=== PATIENT | male | born 1960 | race Caucasian/White ===

== ENCOUNTER 2020-01-07 08:55 | Inpatient (IN) ==
[2020-01-07] MEDS ORDERED: MULTI-VITAMIN INFUSION 10 ML, THIAMINE HCL 100 MG, FOLIC ACID 1 MG in SODIUM CHLORIDE 0... IV ONE (09:18)
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
[2020-01-07 09:33] LABS: Basophils # (auto) 0.02 K/uL (0-0.2); Basophils % (auto) 0.1 %; Eosinophils # (auto) 0.14 K/uL (0-0.5); Eosinophils % (auto) 0.8 %; Hematocrit (blood only) 40.9 % (42-52); Hemoglobin 14.3 g/dL (14.0-18.0); Immature Granulocytes # (auto) 0.07 K/uL (0.00-0.02); Immature Granulocytes % (auto) 0.4 %; Lymphocytes % (auto) 12.5 %; Mean Corpuscular Hemoglobin 32.9 pg (25-34); Mean Corpuscular Volume 94.2 fL (80-100); Mean Platelet Volume 10.4 fL (7.4-10.4); Monocytes # (auto) 1.94 K/uL (0.11-0.59); Monocytes % (auto) 10.5 %; Neutrophils # (auto) 13.99 K/uL (1.4-6.5); Neutrophils % (auto) 75.7 %; Platelet Count 227 K/uL (130-400); RDW Coefficient of Variation 13.2 % (11.5-14.5); RDW Standard Deviation 45.6 fL (36.4-46.3); Red Blood Count 4.34 M/uL (4.7-6.1); White Blood Count 18.46 K/uL (4.8-10.8)
[2020-01-07 09:44] LABS: Partial Thromboplastin Ratio 1.1; Partial Thromboplastin Time 28.8 Seconds (21.0-31.0); Prothrombin Time 9.9 Seconds (9.0-12.0)
--- NOTE | 2020-01-07 09:46 | XRay Report ---
XR ankle RT min 3V routine, XR ankle LT min 3V routine HISTORY: 59 years-old Male pain/swelling acute bilateral ankle pain with soft tissue swelling COMPARISON: None TECHNIQUE: 3 views of the bilateral ankles FINDINGS: RIGHT: Mild circumferential soft tissue swelling. No acute fracture, dislocation or osteochondral defect. 2 mm corticated ossification projects inferior to the medial malleolus suggestive of remote avulsion fr acture fragment versus accessory ossicle. There is mild tibiotalar osteoarthritis. Small joint effusi on. LEFT: Moderate circumferential soft tissue swelling. No acute fracture, dislocation or osteochondral defect . Mild tibiotalar osteoarthritis. No large joint effusion. IMPRESSION: Bilateral ankle soft tissue swelling without acute fracture or dislocation. ACT 112: Negative or not required by law. The above report was generated using voice recognition software. It may contain grammatical, syntax o r spelling errors. Electronically signed by: Jerome Caceres M.D. 01/07/2020 9:45 AM
--- NOTE | 2020-01-07 09:48 | XRay Report ---
XR chest 1V portable HISTORY: 59 years-old Male alcohol intoxication acute atypical chest pain COMPARISON: None TECHNIQUE: Portable AP view of the chest FINDINGS: Healed remote fracture deformities of the posterior and posterolateral aspects of the left ninth rib. Mild degenerative changes of the spine. Cardiomediastinal and hilar silhouettes are within normal li mits. No pneumothorax, pleural effusion, airspace consolidation or overt pulmonary edema. IMPRESSION: No acute process. ACT 112: Negative or not required by law. The above report was generated using voice recognition software. It may contain grammatical, syntax o r spelling errors. Electronically signed by: Jerome Caceres M.D. 01/07/2020 9:46 AM
[2020-01-07 09:55] LABS: Albumin Level 3.6 gm/dl (3.4-5.0); Calcium 8.8 mg/dl (8.5-10.1); Creatinine Clr Calc Pharmacy 82.7 ml/min; Est GFR (Non-African American) 73.3; Potassium 3.7 mmol/L (3.5-5.1); Uric Acid 6.5 mg/dl (2.6-7.2)
[2020-01-07 09:58] LABS: Acetaminophen < 2 ug/ml (10-30); Salicylate 1.8 mg/dl (2.8-20)
[2020-01-07 10:06] LABS: Albumin Globulin Ratio 0.9 (0.9-2); Bilirubin,Total 0.3 mg/dl (0.2-1); Globulin 3.9 gm/dl (2.5-4.0); Thyroid Stimulating Hormone 3.64 uIu/ml (0.300-4.500); Total Protein 7.5 gm/dl (6.4-8.2)
[2020-01-07] MEDS ORDERED: CEFEPIME 2,000 MG/20 ML VIAL IV STA (10:18)
[2020-01-07] MEDS ORDERED: SODIUM CHLORIDE 0.9% 1000ML 1,000 ML IV SCH ×2 (10:30→14:17)
[2020-01-07 11:07] LABS: Lyme Ab IgG w/WB Rflx Negative (Negative); Lyme Ab IgM w/WB Rflx Negative (Negative)
[2020-01-07] MEDS ORDERED: SODIUM CHLORIDE 0.9% 1000ML 1,000 ML IV ONE (11:17)
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
[2020-01-07 13:01] LABS: Magnesium 2.2 mg/dl (1.8-2.4); Phosphorus 3.8 mg/dl (2.5-4.9)
[2020-01-07 13:17] LABS: Appearance Urine Clear (Clear); Bilirubin Urine Negative (Negative); Blood Urine Negative (Negative); Color Urine Yellow; Glucose Urine UA Negative (Negative); Ketones Urine Negative (Negative); Leukocyte Esterase Urine Negative (Negative); Nitrite Urine Negative (Negative); Protein Urine Negative (Negative); Urobilinogen Urine Negative (Negative)
[2020-01-07 13:46] LABS: Amphetamines+Metham, Urine Pos (Neg); Barbiturates, Urine Neg (Neg); Benzodiazepine, Urine Pos (Neg); Cocaine, Urine Neg (Neg); MDMA (Ecstacy), Urine Neg (Neg); Methadone, Urine Neg (Neg); Opiate, Urine Neg (Neg); Phencyclidine, Urine Neg (Neg)
[2020-01-07 13:50] LABS: Influenza A virus by PCR Neg for Influ A (Neg); Influenza B virus by PCR Neg for Influ B (Neg)
--- NOTE | 2020-01-07 14:06 | CT Scan Report ---
CT head/brain wo con CLINICAL HISTORY: Acute change in mental status COMPARISON STUDY: No previous studies for comparison. TECHNIQUE: Axial CT of the brain is performed from the vertex to the skull base. IV contrast was not administered for this examination. A dose lowering technique was utilized adhering to the principles of ALARA. CT DOSE: 1459.56 mGycm FINDINGS: No intra or extra-axial mass lesions are visualized. There is no CT evidence of acute cortical infarc tion. There is no evidence of midline shift. There is no acute hemorrhage. No calvarial fractures ar e visualized. There are mild white matter hypodensities likely on a small vessel basis. There is a right basal gang joyce lacunar infarct. There is no evidence of pathologic ventricular dilatation. There is no evidence of acute sinusitis IMPRESSION: No acute intracranial findings ACT 112: Negative or not required by law. Electronically signed by: Ellis Castaneda M.D. 01/07/2020 2:05 PM
[2020-01-07] MEDS ORDERED: LORazepam 2 MG/4 ML VIAL IV PRN (14:17)
[2020-01-07] MEDS ORDERED: POLYETHYLENE (MIRALAX) 17 GM PACK PO PRN (14:17)
[2020-01-07] MEDS ORDERED: ONDANSETRON INJ 2 MG/ML 2 ML VIAL IV PRN (14:17)
[2020-01-07] MEDS ORDERED: LORazepam 3 MG/6 ML VIAL IV PRN (14:17)
[2020-01-07] MEDS ORDERED: ATIVAN IV ALCOHOL WITHDRAWL IV PRN (14:17)
[2020-01-07] MEDS ORDERED: GABAPENTIN 1200MG ALCOHOL WITHDRAWAL LOAD PO STA (14:17)
[2020-01-07] MEDS ORDERED: ACETAMINOPHEN 325 MG TAB PO PRN (14:17)
[2020-01-07] MEDS ORDERED: GABAPENTIN 600 MG TAB PO ONE (15:00)
[2020-01-07] MEDS ORDERED: THIAMINE HCL 100 MG in SYRINGE 9 ML IV SCH (15:00)
--- NOTE | 2020-01-07 15:01 | Electrocardiogram Report ---
Test Reason : Blood Pressure : / mmHG Vent. Rate : 087 BPM Atrial Rate : 087 BPM P-R Int : 158 ms QRS Dur : 100 ms QT Int : 398 ms P-R-T Axes : 071 078 072 degrees QTc Int : 478 ms Normal sinus rhythm Normal ECG No previous ECGs available Confirmed by Jairo Duval ([id number]) on 01/07/2020 3:01:21 PM Referred By: Confirmed By:Ion Duval
[2020-01-07] MEDS: NICOTINE 14 MG/24 HR PATCH TD SCH ×2 (15:25→16:42)
[2020-01-07] MEDS: FOLIC ACID 1 MG TAB PO SCH (15:26)
[2020-01-07 15:55] LABS: Hepatitis B Surface Antigen Neg (Neg)
[2020-01-07] MEDS ORDERED: LORazepam 2 MG/4 ML VIAL IV STA (16:31)
[2020-01-07] MEDS: GABAPENTIN 600 MG TAB PO SCH ×2 (19:42→23:25)
[2020-01-07] MEDS: CEFEPIME 2,000 MG in SYRINGE 7.5 ML IV SCH (20:05)
[2020-01-07] MEDS: LORazepam 1 MG/2 ML VIAL IV PRN (22:01)
[2020-01-07] MEDS ORDERED: XOPENEX/ATROVENT 1.25mg/0.5MG NEB COMBO NEB PRN (22:28)
[2020-01-07] MEDS ORDERED: LEVALBUTEROL 1.25MG/0.5ML NEB INH PRN (22:30)
[2020-01-07] MEDS ORDERED: IPRATROPIUM BROMIDE NEB SOLN 0.02% 2.5 ML VIAL INH PRN (22:30)
--- NOTE | 2020-01-07 22:45 | XRay Report ---
XR chest 1V portable CLINICAL HISTORY: sob dyspnea COMPARISON STUDY: 01/07/2020 9:32 AM FINDINGS: The bones soft tissues and hemidiaphragms are normal. The cardiomediastinal silhouette is n ormal. The lungs are clear. The pulmonary vasculature is normal. Several old left-sided rib fractures . No acute infiltrate. IMPRESSION: No acute process. No change from the prior exam. ACT 112: Negative or not required by law. The above report was generated using voice recognition software. It may contain grammatical, syntax or spelling errors. Electronically signed by: Rahat Narayan M.D. 01/07/2020 10:44 PM
[2020-01-07] MEDS ORDERED: LACTATED RINGER'S 1,000 ML IV ONE (23:16)
[2020-01-08] MEDS: CEFEPIME 2,000 MG in SYRINGE 7.5 ML IV SCH ×3 (05:38→20:18)
[2020-01-08] MEDS: MULTIVITAMIN TAB PO SCH (07:43)
[2020-01-08] MEDS: THIAMINE HCL 100 MG TAB PO SCH (07:43)
[2020-01-08] MEDS: LORazepam 1 MG/2 ML VIAL IV PRN ×2 (07:43→10:08)
[2020-01-08] MEDS: GABAPENTIN 600 MG TAB PO SCH ×2 (07:43→17:22)
[2020-01-08] MEDS: FOLIC ACID 1 MG TAB PO SCH (07:44)
--- NOTE | 2020-01-08 07:47 | Hospitalist Progress Note ---
Date of Service January 08, 2020 Assessment & Plan (1) Alcohol intoxication: (2) Drug abuse: Pt is 59 y/o M with PMH paroxysmal atrial fibrillation, HTN, drug abuse, alcohol abuse, tobacco abuse presented to ER for altered mental status, was found by police lying in middle of the road [place] [facility]. Limited history obtained from pt secondary to his current altered mental status. 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 , hx of etoh and drug abuse - will consult psych for further eval (3) Leukocytosis: In ER given 1L NSS, cefepime Afebrile. No cough reported WBC: 18, Lactate: 1.9, Procalcitonin: 0.2, CXR: no acute changes. Negative influenza. No noted abscess to arms -Blood cultures pending -UA pending -Cefepime for empiric -MRSA swab -IVF -CBC, CMP in am (4) Elevated LFTs: T: bili: 0.3, AST: 123, ALT: 78, Alk Phos: 78. No abdominal pain Alcohol abuse, h/o IV drug abuse Hepatitis panel pending CMP, liver panel in am (5) Paroxysmal atrial fibrillation: Current sinus rhythm Pt reports self stopped medications previously -Monitor on tele (6) HTN (hypertension): BP's on low side in ER and improved with fluids Not currently on medications -Monitor BP (7) Tobacco abuse: -Smoking cessation advised -Nicotine patch DVT Prophylaxis -SCDs Full Code as per discussion with pt Does not follow with PCP for routine care Admission and Anticipated Discharge Date Admission Date: January 07, 2020 Subjective Pt is lying in bed, in NAD. Currently denies any fever, chills, chest pain, shortness of breath, abd. pain, nausea, vomiting. Says he saw his mother in the room, also reports hx of visual loo ucinations when not withdrawing from alcohol. Says psychiatrist or therapist "did not have time to eval" him while in the rehab. Review of Systems 2 Review of Systems: All systems reviewed & are unremarkable except as noted in HPI & below Constitutional: no fever and no chills Respiratory: no cough and no dyspnea Cardiovascular: no chest pain and no palpitations Gastrointestinal: no abdominal pain, no nausea and no vomiting Psychiatric: + visual hallucinations Physical Exam Physical Exam: General: middle aged male, lying in bed, in no acute distress, WDWN Head: normocephalic, atraumatic Eyes: PERRL, EOM's intact, conjunctiva non-injected, anicteric ENT: normal inspection external ears, nose, mucous membranes mildly dry Neck: supple, trachea midline Lungs: no respiratory distress, + wheezing, no rhonchi or rales CV: RRR, no murmur, no pitting pretibial edema Abd: normal BS, soft, non-tender, nondistended Ext: no cyanosis, no calf tenderness; bilateral ankles and feet with edema with no significant tenderness to palpation at this time, plantar feet with callus, ROM bilateral arms and legs and feet intact Neuro: Alert and oriented, speech fluent, no facial asymmetry, moves extremities spontaneously, no focal deficits noted Psych: visual hallucinations Skin: warm, dry; bilateral arms with track haynes with areas of firmness over veins without erythema or fluctuance Results & Data ([facility]) Vital Signs (Past 12 Hours) Vital Signs Temp Pulse Pulse Resp BP BP Pulse Ox 01/08/20 07:34 37.5 C 107 H 20 136/79 91 01/08/20 03:41 37.0 C 114 H 23 122/70 94 01/08/20 00:00 117 H 01/07/20 23:49 37.0 C 113 H 21 118/69 91 01/07/20 21:54 36.4 C L 108 H 22 121/80 91 Laboratory Results 01/07/20 01/07/20 01/07/20 Range/Units 14:49 14:49 14:45 WBC (4.8-10.8) K/uL RBC (4.7-6.1) M/uL Hgb (14.0-18.0) g/dL Hct (42-52) % MCV (80-100) fL MCH (25-34) pg MCHC (32-36) g/dL RDW Std Deviation (36.4-46.3) fL RDW Coeff of Marian (11.5-14.5) % Plt Count (130-400) K/uL MPV (7.4-10.4) fL Immature Gran % (Auto) % Neut % (Auto) % Lymph % (Auto) % [place] % (Auto) % Eos % (Auto) % Baso % (Auto) % Immature Gran # (Auto) (0.00-0.02) K/uL Neut # (Auto) (1.4-6.5) K/uL Lymph # (Auto) (1.2-3.4) K/uL [place] # (Auto) (0.11-0.59) K/uL Eos # (Auto) (0-0.5) K/uL Baso # (Auto) (0-0.2) K/uL PT (9.0-12.0) Seconds INR (0.9-1.1) APTT (21.0-31.0) Seconds PTT Ratio Sodium (136-145) mmol/L Potassium (3.5-5.1) mmol/L Chloride (98-107) mmol/L Carbon Dioxide (21-32) mmol/L Anion Gap (3-11) BUN (7-18) mg/dl Creatinine (0.6-1.4) mg/dl Est Cr Clr Drug Dosing ml/min Est GFR ( Amer) Est GFR (Non-Af Amer) BUN/Creatinine Ratio (10-20) Glucose (70-99) mg/dl POC Glucose (70-99) mg/dl Lactate (0.4-2.0) mmol/L Uric Acid (2.6-7.2) mg/dl Calcium (8.5-10.1) mg/dl Phosphorus (2.5-4.9) mg/dl Magnesium (1.8-2.4) mg/dl Total Bilirubin (0.2-1) mg/dl AST (15-37) U/L ALT (12-78) U/L Alkaline Phosphatase (45-117) U/L Total Protein (6.4-8.2) gm/dl Albumin (3.4-5.0) gm/dl Globulin (2.5-4.0) gm/dl Albumin/Globulin Ratio (0.9-2) Procalcitonin (0-0.5) ng/ml TSH (0.300-4.500) uIu/ml Urine Color Urine Appearance (Clear) Urine pH (4.5-7.5) Ur Specific [place] (1.000-1.030) Urine Protein (Negative) Urine Glucose (UA) (Negative) Urine Ketones (Negative) Urine Blood (Negative) Urine Nitrite (Negative) Urine Bilirubin (Negative) Urine Urobilinogen (Negative) Ur Leukocyte Esterase (Negative) Nasal Screen MRSA (PCR) Negative (Negative) Salicylates (2.8-20) mg/dl Urine Opiates Screen (Neg) Ur Methadone, Qual (Neg) Acetaminophen (10-30) ug/ml Urine Barbiturates (Neg) Ur Phencyclidine (PCP) (Neg) U Amphetamines Confirm U Amphetamin/Meth Scrn (Neg) U Methamphetamin Confrm MDMA (Ecstasy) Screen (Neg) U OH-Alprazolam Confrm U Benzodiazepines Scrn (Neg) 7-Amino Clonazepam Ur Nordiazepam Confirm U OH-ethylflurazepam U Lorazepam Cnf GC/MS U Oxazepam Confm GC/MS Ur Temazepam Confirm U OH-Triazolam Confirm U OH-Midazolam Confirm Ur Cocaine Metabolite (Neg) U Marijuana (THC) Screen (Neg) Drug Screen Comment Ethyl Alcohol mg/dL (0-3) mg/dl Lyme Disease IgG Ab (Negative) Lyme Disease IgM Ab (Negative) Hep Bs Antigen Neg (Neg) Hepatitis C Antibody Prelim Pos A (Neg) HCV RNA Qual (TMA) Pending Influenza Type A (PCR) (Neg) Influenza Type B (PCR) (Neg) 01/07/20 01/07/20 01/07/20 Range/Units 13:02 12:56 12:56 WBC (4.8-10.8) K/uL RBC (4.7-6.1) M/uL Hgb (14.0-18.0) g/dL Hct (42-52) % MCV (80-100) fL MCH (25-34) pg MCHC (32-36) g/dL RDW Std Deviation (36.4-46.3) fL RDW Coeff of Marian (11.5-14.5) % Plt Count (130-400) K/uL MPV (7.4-10.4) fL Immature Gran % (Auto) % Neut % (Auto) % Lymph % (Auto) % [place] % (Auto) % Eos % (Auto) % Baso % (Auto) % Immature Gran # (Auto) (0.00-0.02) K/uL Neut # (Auto) (1.4-6.5) K/uL Lymph # (Auto) (1.2-3.4) K/uL [place] # (Auto) (0.11-0.59) K/uL Eos # (Auto) (0-0.5) K/uL Baso # (Auto) (0-0.2) K/uL PT (9.0-12.0) Seconds INR (0.9-1.1) APTT (21.0-31.0) Seconds PTT Ratio Sodium (136-145) mmol/L Potassium (3.5-5.1) mmol/L Chloride (98-107) mmol/L Carbon Dioxide (21-32) mmol/L Anion Gap (3-11) BUN (7-18) mg/dl Creatinine (0.6-1.4) mg/dl Est Cr Clr Drug Dosing ml/min Est GFR ( Amer) Est GFR (Non-Af Amer) BUN/Creatinine Ratio (10-20) Glucose (70-99) mg/dl POC Glucose (70-99) mg/dl Lactate (0.4-2.0) mmol/L Uric Acid (2.6-7.2) mg/dl Calcium (8.5-10.1) mg/dl Phosphorus (2.5-4.9) mg/dl Magnesium (1.8-2.4) mg/dl Total Bilirubin (0.2-1) mg/dl AST (15-37) U/L ALT (12-78) U/L Alkaline Phosphatase (45-117) U/L Total Protein (6.4-8.2) gm/dl Albumin (3.4-5.0) gm/dl Globulin (2.5-4.0) gm/dl Albumin/Globulin Ratio (0.9-2) Procalcitonin (0-0.5) ng/ml TSH (0.300-4.500) uIu/ml Urine Color Yellow Urine Appearance Clear (Clear) Urine pH 5.0 (4.5-7.5) Ur Specific [place] 1.010 (1.000-1.030) Urine Protein Negative (Negative) Urine Glucose (UA) Negative (Negative) Urine Ketones Negative (Negative) Urine Blood Negative (Negative) Urine Nitrite Negative (Negative) Urine Bilirubin Negative (Negative) Urine Urobilinogen Negative (Negative) Ur Leukocyte Esterase Negative (Negative) Nasal Screen MRSA (PCR) (Negative) Salicylates (2.8-20) mg/dl Urine Opiates Screen (Neg) Ur Methadone, Qual (Neg) Acetaminophen (10-30) ug/ml Urine Barbiturates (Neg) Ur Phencyclidine (PCP) (Neg) U Amphetamines Confirm Pending U Amphetamin/Meth Scrn (Neg) U Methamphetamin Confrm Pending MDMA (Ecstasy) Screen (Neg) U OH-Alprazolam Confrm Pending U Benzodiazepines Scrn (Neg) 7-Amino Clonazepam Pending Ur Nordiazepam Confirm Pending U OH-ethylflurazepam Pending U Lorazepam Cnf GC/MS Pending U Oxazepam Confm GC/MS Pending Ur Temazepam Confirm Pending U OH-Triazolam Confirm Pending U OH-Midazolam Confirm Pending Ur Cocaine Metabolite (Neg) U Marijuana (THC) Screen (Neg) Drug Screen Comment Pending Ethyl Alcohol mg/dL (0-3) mg/dl Lyme Disease IgG Ab (Negative) Lyme Disease IgM Ab (Negative) Hep Bs Antigen (Neg) Hepatitis C Antibody (Neg) HCV RNA Qual (TMA) Influenza Type A (PCR) Neg for Influ A (Neg) Influenza Type B (PCR) Neg for Influ B (Neg) 01/07/20 01/07/20 01/07/20 Range/Units 12:56 11:07 09:26 WBC (4.8-10.8) K/uL RBC (4.7-6.1) M/uL Hgb (14.0-18.0) g/dL Hct (42-52) % MCV (80-100) fL MCH (25-34) pg MCHC (32-36) g/dL RDW Std Deviation (36.4-46.3) fL RDW Coeff of Marian (11.5-14.5) % Plt Count (130-400) K/uL MPV (7.4-10.4) fL Immature Gran % (Auto) % Neut % (Auto) % Lymph % (Auto) % [place] % (Auto) % Eos % (Auto) % Baso % (Auto) % Immature Gran # (Auto) (0.00-0.02) K/uL Neut # (Auto) (1.4-6.5) K/uL Lymph # (Auto) (1.2-3.4) K/uL [place] # (Auto) (0.11-0.59) K/uL Eos # (Auto) (0-0.5) K/uL Baso # (Auto) (0-0.2) K/uL PT (9.0-12.0) Seconds INR (0.9-1.1) APTT (21.0-31.0) Seconds PTT Ratio Sodium (136-145) mmol/L Potassium (3.5-5.1) mmol/L Chloride (98-107) mmol/L Carbon Dioxide (21-32) mmol/L Anion Gap (3-11) BUN (7-18) mg/dl Creatinine (0.6-1.4) mg/dl Est Cr Clr Drug Dosing ml/min Est GFR ( Amer) Est GFR (Non-Af Amer) BUN/Creatinine Ratio (10-20) Glucose (70-99) mg/dl POC Glucose 104 H (70-99) mg/dl Lactate 1.9 (0.4-2.0) mmol/L Uric Acid (2.6-7.2) mg/dl Calcium (8.5-10.1) mg/dl Phosphorus (2.5-4.9) mg/dl Magnesium (1.8-2.4) mg/dl Total Bilirubin (0.2-1) mg/dl AST (15-37) U/L ALT (12-78) U/L Alkaline Phosphatase (45-117) U/L Total Protein (6.4-8.2) gm/dl Albumin (3.4-5.0) gm/dl Globulin (2.5-4.0) gm/dl Albumin/Globulin Ratio (0.9-2) Procalcitonin (0-0.5) ng/ml TSH (0.300-4.500) uIu/ml Urine Color Urine Appearance (Clear) Urine pH (4.5-7.5) Ur Specific [place] (1.000-1.030) Urine Protein (Negative) Urine Glucose (UA) (Negative) Urine Ketones (Negative) Urine Blood (Negative) Urine Nitrite (Negative) Urine Bilirubin (Negative) Urine Urobilinogen (Negative) Ur Leukocyte Esterase (Negative) Nasal Screen MRSA (PCR) (Negative) Salicylates (2.8-20) mg/dl Urine Opiates Screen Neg (Neg) Ur Methadone, Qual Neg (Neg) Acetaminophen (10-30) ug/ml Urine Barbiturates Neg (Neg) Ur Phencyclidine (PCP) Neg (Neg) U Amphetamines Confirm U Amphetamin/Meth Scrn Pos H (Neg) U Methamphetamin Confrm MDMA (Ecstasy) Screen Neg (Neg) U OH-Alprazolam Confrm U Benzodiazepines Scrn Pos H (Neg) 7-Amino Clonazepam Ur Nordiazepam Confirm U OH-ethylflurazepam U Lorazepam Cnf GC/MS U Oxazepam Confm GC/MS Ur Temazepam Confirm U OH-Triazolam Confirm U OH-Midazolam Confirm Ur Cocaine Metabolite Neg (Neg) U Marijuana (THC) Screen Neg (Neg) Drug Screen Comment Ethyl Alcohol mg/dL (0-3) mg/dl Lyme Disease IgG Ab (Negative) Lyme Disease IgM Ab (Negative) Hep Bs Antigen (Neg) Hepatitis C Antibody (Neg) HCV RNA Qual (TMA) Influenza Type A (PCR) (Neg) Influenza Type B (PCR) (Neg) 01/07/20 01/07/20 01/07/20 Range/Units 09:24 09:24 09:21 WBC (4.8-10.8) K/uL RBC (4.7-6.1) M/uL Hgb (14.0-18.0) g/dL Hct (42-52) % MCV (80-100) fL MCH (25-34) pg MCHC (32-36) g/dL RDW Std Deviation (36.4-46.3) fL RDW Coeff of Marian (11.5-14.5) % Plt Count (130-400) K/uL MPV (7.4-10.4) fL Immature Gran % (Auto) % Neut % (Auto) % Lymph % (Auto) % [place] % (Auto) % Eos % (Auto) % Baso % (Auto) % Immature Gran # (Auto) (0.00-0.02) K/uL Neut # (Auto) (1.4-6.5) K/uL Lymph # (Auto) (1.2-3.4) K/uL [place] # (Auto) (0.11-0.59) K/uL Eos # (Auto) (0-0.5) K/uL Baso # (Auto) (0-0.2) K/uL PT 9.9 (9.0-12.0) Seconds INR 1.0 (0.9-1.1) APTT 28.8 (21.0-31.0) Seconds PTT Ratio 1.1 Sodium (136-145) mmol/L Potassium (3.5-5.1) mmol/L Chloride (98-107) mmol/L Carbon Dioxide (21-32) mmol/L Anion Gap (3-11) BUN (7-18) mg/dl Creatinine (0.6-1.4) mg/dl Est Cr Clr Drug Dosing ml/min Est GFR ( Amer) Est GFR (Non-Af Amer) BUN/Creatinine Ratio (10-20) Glucose (70-99) mg/dl POC Glucose (70-99) mg/dl Lactate (0.4-2.0) mmol/L Uric Acid (2.6-7.2) mg/dl Calcium (8.5-10.1) mg/dl Phosphorus (2.5-4.9) mg/dl Magnesium (1.8-2.4) mg/dl Total Bilirubin (0.2-1) mg/dl AST (15-37) U/L ALT (12-78) U/L Alkaline Phosphatase (45-117) U/L Total Protein (6.4-8.2) gm/dl Albumin (3.4-5.0) gm/dl Globulin (2.5-4.0) gm/dl Albumin/Globulin Ratio (0.9-2) Procalcitonin 0.20 (0-0.5) ng/ml TSH (0.300-4.500) uIu/ml Urine Color Urine Appearance (Clear) Urine pH (4.5-7.5) Ur Specific [place] (1.000-1.030) Urine Protein (Negative) Urine Glucose (UA) (Negative) Urine Ketones (Negative) Urine Blood (Negative) Urine Nitrite (Negative) Urine Bilirubin (Negative) Urine Urobilinogen (Negative) Ur Leukocyte Esterase (Negative) Nasal Screen MRSA (PCR) (Negative) Salicylates (2.8-20) mg/dl Urine Opiates Screen (Neg) Ur Methadone, Qual (Neg) Acetaminophen (10-30) ug/ml Urine Barbiturates (Neg) Ur Phencyclidine (PCP) (Neg) U Amphetamines Confirm U Amphetamin/Meth Scrn (Neg) U Methamphetamin Confrm MDMA (Ecstasy) Screen (Neg) U OH-Alprazolam Confrm U Benzodiazepines Scrn (Neg) 7-Amino Clonazepam Ur Nordiazepam Confirm U OH-ethylflurazepam U Lorazepam Cnf GC/MS U Oxazepam Confm GC/MS Ur Temazepam Confirm U OH-Triazolam Confirm U OH-Midazolam Confirm Ur Cocaine Metabolite (Neg) U Marijuana (THC) Screen (Neg) Drug Screen Comment Ethyl Alcohol mg/dL (0-3) mg/dl Lyme Disease IgG Ab Negative (Negative) Lyme Disease IgM Ab Negative (Negative) Hep Bs Antigen (Neg) Hepatitis C Antibody (Neg) HCV RNA Qual (TMA) Influenza Type A (PCR) (Neg) Influenza Type B (PCR) (Neg) 01/07/20 01/07/20 01/07/20 Range/Units 09:21 09:21 09:20 WBC 18.46 H (4.8-10.8) K/uL RBC 4.34 L (4.7-6.1) M/uL Hgb 14.3 (14.0-18.0) g/dL Hct 40.9 L (42-52) % MCV 94.2 (80-100) fL MCH 32.9 (25-34) pg MCHC 35.0 (32-36) g/dL RDW Std Deviation 45.6 (36.4-46.3) fL RDW Coeff of Marian 13.2 (11.5-14.5) % Plt Count 227 (130-400) K/uL MPV 10.4 (7.4-10.4) fL Immature Gran % (Auto) 0.4 % Neut % (Auto) 75.7 % Lymph % (Auto) 12.5 % [place] % (Auto) 10.5 % Eos % (Auto) 0.8 % Baso % (Auto) 0.1 % Immature Gran # (Auto) 0.07 H (0.00-0.02) K/uL Neut # (Auto) 13.99 H (1.4-6.5) K/uL Lymph # (Auto) 2.30 (1.2-3.4) K/uL [place] # (Auto) 1.94 H (0.11-0.59) K/uL Eos # (Auto) 0.14 (0-0.5) K/uL Baso # (Auto) 0.02 (0-0.2) K/uL PT (9.0-12.0) Seconds INR (0.9-1.1) APTT (21.0-31.0) Seconds PTT Ratio Sodium (136-145) mmol/L Potassium (3.5-5.1) mmol/L Chloride (98-107) mmol/L Carbon Dioxide (21-32) mmol/L Anion Gap (3-11) BUN (7-18) mg/dl Creatinine (0.6-1.4) mg/dl Est Cr Clr Drug Dosing ml/min Est GFR ( Amer) Est GFR (Non-Af Amer) BUN/Creatinine Ratio (10-20) Glucose (70-99) mg/dl POC Glucose (70-99) mg/dl Lactate (0.4-2.0) mmol/L Uric Acid (2.6-7.2) mg/dl Calcium (8.5-10.1) mg/dl Phosphorus 3.8 (2.5-4.9) mg/dl Magnesium 2.2 (1.8-2.4) mg/dl Total Bilirubin (0.2-1) mg/dl AST (15-37) U/L ALT (12-78) U/L Alkaline Phosphatase (45-117) U/L Total Protein (6.4-8.2) gm/dl Albumin (3.4-5.0) gm/dl Globulin (2.5-4.0) gm/dl Albumin/Globulin Ratio (0.9-2) Procalcitonin (0-0.5) ng/ml TSH (0.300-4.500) uIu/ml Urine Color Urine Appearance (Clear) Urine pH (4.5-7.5) Ur Specific [place] (1.000-1.030) Urine Protein (Negative) Urine Glucose (UA) (Negative) Urine Ketones (Negative) Urine Blood (Negative) Urine Nitrite (Negative) Urine Bilirubin (Negative) Urine Urobilinogen (Negative) Ur Leukocyte Esterase (Negative) Nasal Screen MRSA (PCR) (Negative) Salicylates 1.8 L (2.8-20) mg/dl Urine Opiates Screen (Neg) Ur Methadone, Qual (Neg) Acetaminophen < 2 L (10-30) ug/ml Urine Barbiturates (Neg) Ur Phencyclidine (PCP) (Neg) U Amphetamines Confirm U Amphetamin/Meth Scrn (Neg) U Methamphetamin Confrm MDMA (Ecstasy) Screen (Neg) U OH-Alprazolam Confrm U Benzodiazepines Scrn (Neg) 7-Amino Clonazepam Ur Nordiazepam Confirm U OH-ethylflurazepam U Lorazepam Cnf GC/MS U Oxazepam Confm GC/MS Ur Temazepam Confirm U OH-Triazolam Confirm U OH-Midazolam Confirm Ur Cocaine Metabolite (Neg) U Marijuana (THC) Screen (Neg) Drug Screen Comment Ethyl Alcohol mg/dL (0-3) mg/dl Lyme Disease IgG Ab (Negative) Lyme Disease IgM Ab (Negative) Hep Bs Antigen (Neg) Hepatitis C Antibody (Neg) HCV RNA Qual (TMA) Influenza Type A (PCR) (Neg) Influenza Type B (PCR) (Neg) 01/07/20 01/07/20 Range/Units 09:20 09:20 WBC (4.8-10.8) K/uL RBC (4.7-6.1) M/uL Hgb (14.0-18.0) g/dL Hct (42-52) % MCV (80-100) fL MCH (25-34) pg MCHC (32-36) g/dL RDW Std Deviation (36.4-46.3) fL RDW Coeff of Marian (11.5-14.5) % Plt Count (130-400) K/uL MPV (7.4-10.4) fL Immature Gran % (Auto) % Neut % (Auto) % Lymph % (Auto) % [place] % (Auto) % Eos % (Auto) % Baso % (Auto) % Immature Gran # (Auto) (0.00-0.02) K/uL Neut # (Auto) (1.4-6.5) K/uL Lymph # (Auto) (1.2-3.4) K/uL [place] # (Auto) (0.11-0.59) K/uL Eos # (Auto) (0-0.5) K/uL Baso # (Auto) (0-0.2) K/uL PT (9.0-12.0) Seconds INR (0.9-1.1) APTT (21.0-31.0) Seconds PTT Ratio Sodium 131 L (136-145) mmol/L Potassium 3.7 (3.5-5.1) mmol/L Chloride 98 (98-107) mmol/L Carbon Dioxide 22 (21-32) mmol/L Anion Gap 10.0 (3-11) BUN 17 (7-18) mg/dl Creatinine 1.11 (0.6-1.4) mg/dl Est Cr Clr Drug Dosing 82.7 ml/min Est GFR ( Amer) 85.0 Est GFR (Non-Af Amer) 73.3 BUN/Creatinine Ratio 15.0 (10-20) Glucose 117 H (70-99) mg/dl POC Glucose (70-99) mg/dl Lactate (0.4-2.0) mmol/L Uric Acid 6.5 (2.6-7.2) mg/dl Calcium 8.8 (8.5-10.1) mg/dl Phosphorus (2.5-4.9) mg/dl Magnesium (1.8-2.4) mg/dl Total Bilirubin 0.3 (0.2-1) mg/dl AST 123 H (15-37) U/L ALT 265 H (12-78) U/L Alkaline Phosphatase 78 (45-117) U/L Total Protein 7.5 (6.4-8.2) gm/dl Albumin 3.6 (3.4-5.0) gm/dl Globulin 3.9 (2.5-4.0) gm/dl Albumin/Globulin Ratio 0.9 (0.9-2) Procalcitonin (0-0.5) ng/ml TSH 3.640 (0.300-4.500) uIu/ml Urine Color Urine Appearance (Clear) Urine pH (4.5-7.5) Ur Specific [place] (1.000-1.030) Urine Protein (Negative) Urine Glucose (UA) (Negative) Urine Ketones (Negative) Urine Blood (Negative) Urine Nitrite (Negative) Urine Bilirubin (Negative) Urine Urobilinogen (Negative) Ur Leukocyte Esterase (Negative) Nasal Screen MRSA (PCR) (Negative) Salicylates (2.8-20) mg/dl Urine Opiates Screen (Neg) Ur Methadone, Qual (Neg) Acetaminophen (10-30) ug/ml Urine Barbiturates (Neg) Ur Phencyclidine (PCP) (Neg) U Amphetamines Confirm U Amphetamin/Meth Scrn (Neg) U Methamphetamin Confrm MDMA (Ecstasy) Screen (Neg) U OH-Alprazolam Confrm U Benzodiazepines Scrn (Neg) 7-Amino Clonazepam Ur Nordiazepam Confirm U OH-ethylflurazepam U Lorazepam Cnf GC/MS U Oxazepam Confm GC/MS Ur Temazepam Confirm U OH-Triazolam Confirm U OH-Midazolam Confirm Ur Cocaine Metabolite (Neg) U Marijuana (THC) Screen (Neg) Drug Screen Comment Ethyl Alcohol mg/dL 269.1 H (0-3) mg/dl Lyme Disease IgG Ab (Negative) Lyme Disease IgM Ab (Negative) Hep Bs Antigen (Neg) Hepatitis C Antibody (Neg) HCV RNA Qual (TMA) Influenza Type A (PCR) (Neg) Influenza Type B (PCR) (Neg) Diagnostic Findings Head CT There are mild white matter hypodensities likely on a small vessel basis. There is a right basal ganglia lacunar infarct. IMPRESSION: No acute intracranial findings Medications Administered Current Inpatient Medications Acetaminophen (Tylenol) 650 mg PO Q4H PRN PRN Reason: Pain or Fever Stop: 02/06/20 14:16 Last Admin: 01/08/20 07:42 Dose: 650 mg Documented by: Folic Acid (Folvite) 1 mg PO QAM [facility] Stop: 02/06/20 14:16 Last Admin: 01/08/20 07:44 Dose: 1 mg Documented by: Gabapentin (Neurontin) 600 mg PO Q8H [facility] Stop: 01/09/20 01:01 Last Admin: 01/08/20 07:43 Dose: 600 mg Documented by: Gabapentin (Neurontin) 600 mg PO Q12H [facility] Stop: 01/10/20 01:01 Gabapentin (Neurontin) 600 mg PO Q24H [facility] Stop: 01/11/20 01:01 Lorazepam (Ativan) 1 mg in 2 mls @ 2 mls/min IV UD PRN; Protocol PRN Reason: EtOH Withdrawl AWSS Score 6,7 Stop: 02/06/20 14:16 Last Admin: 01/08/20 07:43 Dose: 2 mls/min Documented by: Lorazepam (Ativan) 2 mg in 4 mls @ 4 mls/min IV UD PRN; Protocol PRN Reason: EtOH Withdrawl AWSS Score 8,9 Stop: 02/06/20 14:16 Lorazepam (Ativan) 3 mg in 6 mls @ 4 mls/min IV ONCE PRN; Protocol PRN Reason: EtOH Withdrawl AWSS Score >=10 Stop: 02/06/20 14:16 Cefepime HCl 2,000 mg/ Syringe 20 mls @ 5.5 mls/min IV Q8H [facility]; Protocol Stop: 01/09/20 19:59 Last Admin: 01/08/20 05:38 Dose: 5.5 mls/min Documented by: Ipratropium [place] (Atrovent 0.02% 0.5mg/2.5ml) 0.5 mg INH Q4H PRN PRN Reason: SOB/WHEEZING Stop: 02/06/20 22:29 Levalbuterol HCl (Xopenex 1.25mg/0.5ml Neb) 1.25 mg INH Q4H PRN PRN Reason: SOB/WHEEZING Stop: 02/06/20 22:29 Miscellaneous (Remove Nicoderm Patch) 1 ea N/A DAILY@0859 [facility] Stop: 02/07/20 08:58 Multivitamins (Multivitamin Tab) 1 tab PO QAM [facility] Stop: 02/07/20 08:59 Last Admin: 01/08/20 07:43 Dose: 1 tab Documented by: Nicotine ([facility]oderm Cq) [facility] [place] Stop: 02/06/20 14:59 Last Admin: 01/07/20 16:42 Dose: 14 mg Documented by: Ondansetron HCl (Zofran) 4 mg IV Q6H PRN PRN Reason: Nausea Stop: 02/06/20 14:16 Polyethylene Glycol (Miralax Powder Packet) 17 gm PO DAILY PRN PRN Reason: Constipation Stop: 02/06/20 14:16 Thiamine HCl (Vitamin B-1) 100 mg PO [facility] Stop: 02/07/20 08:59 Last Admin: 01/08/20 07:43 Dose: 100 mg Documented by: (1) Leukocytosis Leukocytosis type: bandemia Qualified Code(s): D72.825 - Bandemia
[2020-01-08 08:03] LABS: Hematocrit (blood only) 38.4 % (42-52); Hemoglobin 13.1 g/dL (14.0-18.0); Mean Corpuscular Hemoglobin 32.7 pg (25-34); Mean Corpuscular Hgb Conc 34.1 g/dL (32-36); Mean Corpuscular Volume 95.8 fL (80-100); Mean Platelet Volume 10.6 fL (7.4-10.4); Platelet Count 210 K/uL (130-400); RDW Coefficient of Variation 13.6 % (11.5-14.5); RDW Standard Deviation 47.3 fL (36.4-46.3); Red Blood Count 4.01 M/uL (4.7-6.1); White Blood Count 14.56 K/uL (4.8-10.8)
[2020-01-08 08:50] LABS: Alanine Aminotransferase 190 U/L (12-78); Albumin Globulin Ratio 0.8 (0.9-2); Albumin Level 2.8 gm/dl (3.4-5.0); Alkaline Phosphatase 60 U/L (45-117); Aspartate Aminotransferase 89 U/L (15-37); BUN Creatinine Ratio 19.9 (10-20); Bilirubin Direct < 0.1 mg/dl (0-0.2); Bilirubin,Total 0.6 mg/dl (0.2-1); Blood Urea Nitrogen 15 mg/dl (7-18); Calcium 8.2 mg/dl (8.5-10.1); Carbon Dioxide 26 mmol/L (21-32); Chloride 105 mmol/L (98-107); Creatinine Clr Calc Pharmacy 117.5 ml/min; Est GFR (African American) 116.8; Est GFR (Non-African American) 100.7; Globulin 3.4 gm/dl (2.5-4.0); Glucose 88 mg/dl (70-99); Magnesium 1.8 mg/dl (1.8-2.4); Potassium 4.3 mmol/L (3.5-5.1); Sodium 136 mmol/L (136-145); Total Protein 6.2 gm/dl (6.4-8.2)
[2020-01-08] MEDS ORDERED: LEVALBUTEROL TARTRATE 15 GM HFA.AER.AD INH PRN (11:46)
[2020-01-08] MEDS ORDERED: IPRATROPIUM BROMIDE HFA INHALER INH PRN (11:46)
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
[2020-01-08] MEDS ORDERED: ALBUT/IPRATROP 3MG/0.5MG NEB 3 ML VIAL NEB SCH (19:00)
[2020-01-09] MEDS: GABAPENTIN 600 MG TAB PO SCH (00:11)
[2020-01-09] MEDS ORDERED: XOPENEX/ATROVENT 1.25mg/0.5MG NEB COMBO NEB SCH (02:26)
[2020-01-09] MEDS: CEFEPIME 2,000 MG in SYRINGE 7.5 ML IV SCH ×2 (04:09→12:45)
[2020-01-09] MEDS: LEVALBUTEROL 1.25MG/0.5ML NEB INH SCH ×3 (07:40→21:02)
[2020-01-09] MEDS: IPRATROPIUM BROMIDE NEB SOLN 0.02% 2.5 ML VIAL INH SCH ×3 (07:40→21:02)
[2020-01-09] MEDS: FOLIC ACID 1 MG TAB PO SCH ×2 (08:10→08:33)
[2020-01-09] MEDS: NICOTINE 14 MG/24 HR PATCH TD SCH ×2 (08:10→08:33)
[2020-01-09] MEDS: THIAMINE HCL 100 MG TAB PO SCH (08:12)
[2020-01-09] MEDS: MULTIVITAMIN TAB PO SCH ×2 (08:12→08:33)
[2020-01-09] MEDS: LORazepam 1 MG/2 ML VIAL IV PRN (08:33)
--- NOTE | 2020-01-09 11:15 | Hospitalist Progress Note ---
Date of Service January 09, 2020 Assessment & Plan (1) Alcohol intoxication: (2) Drug abuse: Pt is 59 y/o M with PMH paroxysmal atrial fibrillation, HTN, drug abuse, alcohol abuse, tobacco abuse presented to ER for altered mental status, was found by police lying in middle [place] the [place] [facility]. Limited history obtained from pt secondary to his current altered mental status. 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 , hx of etoh and drug abuse - psych consulted for further eval (3) Leukocytosis: In ER given 1L NSS, cefepime Afebrile. No cough reported WBC: 18, Lactate: 1.9, Procalcitonin: 0.2, CXR: no acute changes. Negative influenza. No noted abscess to arms -Blood cultures pending -UA - negative -Cefepime for empiric -MRSA swab -IVF -CBC, CMP in am (4) Elevated LFTs: T: bili: 0.3, AST: 123, ALT: 78, Alk Phos: 78. No abdominal pain Alcohol abuse, h/o IV drug abuse Hep C positive screen rest of Hepatitis panel pending LFTs trending down cont. to monitor (5) Paroxysmal atrial fibrillation: Current sinus rhythm Pt reports self stopped medications previously -Monitor on tele (6) HTN (hypertension): BP's on low side in ER and improved with fluids Not currently on medications -Monitor BP (7) Tobacco abuse: -Smoking cessation advised -Nicotine patch DVT Prophylaxis -SCDs Full Code as per discussion with pt Does not follow with PCP for routine care Admission and Anticipated Discharge Date Admission Date: January 07, 2020 Subjective Notified this AM by nursing staff that pt wanted to leave AMA. Currently pt is in his room fully dressed. Complains about nursing staff and about the fact that he was moved to a different room overnight. He is otherwise in NAD. Currently denies any fever, chills, chest pain, shortness of breath, abd. pain, nausea, vomiting. Yesterday he said that he saw his mother in the room, also reported hx of visual hallucinations when not withdrawing from alcohol. Psychiatry evaluated the pt and recommend inpt rehab right after medical discharge. CM notified. Review of Systems Review of Systems: All systems reviewed & are unremarkable except as noted in HPI & below Constitutional: no fever and no chills Respiratory: no cough and no dyspnea Cardiovascular: no chest pain and no palpitations Gastrointestinal: no abdominal pain, no nausea and no vomiting Neurologic: tremulous Physical Exam Physical Exam: General: middle aged male, sitting up in bed, in no acute distress, WDWN Head: normocephalic, atraumatic Eyes: PERRL, EOM's intact, conjunctiva non-injected, anicteric ENT: normal inspection external ears, nose, mucous membranes mildly dry Neck: supple, trachea midline Lungs: no respiratory distress, + wheezing, no rhonchi or rales CV: RRR, no murmur, no pitting pretibial edema Abd: normal BS, soft, non-tender, nondistended Ext: no cyanosis, no calf tenderness; bilateral ankles and feet with edema with some tenderness to palpation, ROM bilateral arms and legs and feet intact Neuro: Alert and oriented, speech fluent, no facial asymmetry, moves extremities spontaneously, no focal deficits noted Psych: visual hallucinations Skin: warm, dry; bilateral arms with track haynes with areas of firmness over veins without erythema or fluctuance Results & Data ([facility]) Vital Signs (Past 12 Hours) Vital Signs Temp Pulse Pulse Resp BP BP Pulse Ox 01/09/20 08:05 36.6 C 72 20 126/79 93 01/09/20 07:42 77 16 95 01/09/20 07:00 72 01/09/20 02:14 36.9 C 82 18 103/63 92 01/09/20 00:03 37.0 C 89 20 136/83 90 01/09/20 00:00 96 H Laboratory Results 01/08/20 Range/Units 07:44 Hepatitis C Ab Screen Pos A (Neg) Medications Administered Current Inpatient Medications Acetaminophen (Tylenol) 650 mg PO Q4H PRN PRN Reason: Pain or Fever Stop: 02/06/20 14:16 Last Admin: 01/08/20 07:42 Dose: 650 mg Documented by: Folic Acid (Folvite) 1 mg PO QAM [facility] Stop: 02/06/20 14:16 Last Admin: 01/09/20 08:33 Dose: 1 mg Documented by: Gabapentin (Neurontin) 600 mg PO Q12H [facility] Stop: 01/10/20 01:01 Gabapentin (Neurontin) 600 mg PO Q24H [facility] Stop: 01/11/20 01:01 Lorazepam (Ativan) 1 mg in 2 mls @ 2 mls/min IV UD PRN; Protocol PRN Reason: EtOH Withdrawl AWSS Score 6,7 Stop: 02/06/20 14:16 Last Admin: 01/09/20 08:33 Dose: 2 mls/min Documented by: Lorazepam (Ativan) 2 mg in 4 mls @ 4 mls/min IV UD PRN; Protocol PRN Reason: EtOH Withdrawl AWSS Score 8,9 Stop: 02/06/20 14:16 Lorazepam (Ativan) 3 mg in 6 mls @ 4 mls/min IV ONCE PRN; Protocol PRN Reason: EtOH Withdrawl AWSS Score >=10 Stop: 02/06/20 14:16 Last Admin: 01/08/20 17:50 Dose: 4 mls/min Documented by: Cefepime HCl 2,000 mg/ Syringe 20 mls @ 5.5 mls/min IV Q8H [facility]; Protocol Stop: 01/09/20 19:59 Last Admin: 01/09/20 04:09 Dose: 5.5 mls/min Documented by: Ipratropium [place] (Atrovent Hfa) 2 puffs INH Q6H PRN PRN Reason: Wheezing Stop: 02/07/20 11:45 Ipratropium [place] (Atrovent 0.02% 0.5mg/2.5ml) 0.5 mg INH Q6R [facility] Stop: 02/08/20 06:59 Last Admin: 01/09/20 07:40 Dose: 0.5 mg Documented by: Levalbuterol HCl (Xopenex Hfa) 2 puffs INH Q6H PRN PRN Reason: Wheezing Stop: 02/07/20 11:45 Levalbuterol HCl (Xopenex 1.25mg/0.5ml Neb) 1.25 mg INH Q6R [facility] Stop: 02/08/20 06:59 Last Admin: 01/09/20 07:40 Dose: 1.25 mg Documented by: Miscellaneous (Remove Nicoderm Patch) 1 ea N/A DAILY@858 [facility] Stop: 02/07/20 08:58 Last Admin: 01/09/20 08:32 Dose: 1 ea Documented by: Multivitamins (Multivitamin Tab) 1 tab PO [facility] Stop: 02/07/20 08:59 Last Admin: 01/09/20 08:33 Dose: 1 tab Documented by: Nicotine (Nicoderm Cq) 14 mg TD [facility] Stop: 02/06/20 14:59 Last Admin: 01/09/20 08:33 Dose: 14 mg Documented by: Ondansetron HCl (Zofran) 4 mg IV Q6H PRN PRN Reason: Nausea Stop: 02/06/20 14:16 Polyethylene Glycol (Miralax Powder Packet) 17 gm PO DAILY PRN PRN Reason: Constipation Stop: 02/06/20 14:16 Thiamine HCl (Vitamin B-1) 100 mg PO [facility] Stop: 02/07/20 08:59 Last Admin: 01/09/20 08:12 Dose: 100 mg Documented by: (1) Leukocytosis Leukocytosis type: bandemia Qualified Code(s): D72.825 - Bandemia
[2020-01-09] MEDS ORDERED: LORazepam 1 MG/2 ML VIAL IV STA (11:28)
[2020-01-09] MEDS ORDERED: ALBUTEROL HFA 8 GM INHALER INH PRN (12:01)
[2020-01-09] MEDS ORDERED: FLUTICASONE PROPIONATE NA SPR 16 GM BTL PRN (12:02)
[2020-01-09] MEDS ORDERED: GABAPENTIN 600 MG TAB PO SCH (13:00)
[2020-01-09 14:35] LABS: Hematocrit (blood only) 38.6 % (42-52); Hemoglobin 13.3 g/dL (14.0-18.0); Mean Corpuscular Hemoglobin 33.2 pg (25-34); Mean Corpuscular Hgb Conc 34.5 g/dL (32-36); Mean Corpuscular Volume 96.3 fL (80-100); Mean Platelet Volume 10.9 fL (7.4-10.4); Platelet Count 227 K/uL (130-400); RDW Coefficient of Variation 13.6 % (11.5-14.5); RDW Standard Deviation 48.1 fL (36.4-46.3); Red Blood Count 4.01 M/uL (4.7-6.1)
[2020-01-09 14:41] LABS: Hepatitis A Antibody IgM NON-REACTIVE (NON-REACTIVE); Hepatitis B Core Antibody IgM NON-REACTIVE (NON-REACTIVE)
[2020-01-09 15:09] LABS: BUN Creatinine Ratio 17.7 (10-20); Calcium 8.9 mg/dl (8.5-10.1); Creatinine Clr Calc Pharmacy 101.6 ml/min; Est GFR (Non-African American) 94.9; Potassium 4.3 mmol/L (3.5-5.1)
[2020-01-09 15:11] LABS: Albumin Globulin Ratio 0.8 (0.9-2); Bilirubin,Total 0.3 mg/dl (0.2-1); Globulin 3.8 gm/dl (2.5-4.0); Total Protein 6.8 gm/dl (6.4-8.2)
[2020-01-09] MEDS: LORazepam 1 MG TAB PO SCH ×2 (17:14→21:39)
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
[2020-01-09] MEDS ORDERED: LORazepam 0.5 MG TAB PO PRN (21:04)
[2020-01-09] MEDS ORDERED: LORazepam 3 MG/6 ML VIAL IV PRN (21:05)
[2020-01-09] MEDS ORDERED: LORazepam 2 MG/4 ML VIAL IV PRN (21:05)
[2020-01-09] MEDS ORDERED: ATIVAN IV ALCOHOL WITHDRAWL IV PRN (21:05)
[2020-01-09] MEDS ORDERED: LORazepam 1 MG/2 ML VIAL IV PRN (21:05)
[2020-01-09] MEDS ORDERED: LORazepam 1 MG TAB PO PRN (21:06)
[2020-01-09] MEDS: POT PHOSPHATE MONOBASIC W/ SOD TAB PO SCH (21:39)
[2020-01-09] MEDS: GABAPENTIN 800 MG TAB PO SCH (22:05)
[2020-01-10] MEDS: IPRATROPIUM BROMIDE NEB SOLN 0.02% 2.5 ML VIAL INH SCH ×2 (01:12→07:36)
[2020-01-10] MEDS: LEVALBUTEROL 1.25MG/0.5ML NEB INH SCH ×2 (01:12→07:36)
[2020-01-10 07:12] LABS: Hematocrit (blood only) 39.7 % (42-52); Hemoglobin 13.5 g/dL (14.0-18.0); Mean Corpuscular Hemoglobin 32.7 pg (25-34); Mean Corpuscular Volume 96.1 fL (80-100); Mean Platelet Volume 10.6 fL (7.4-10.4); Platelet Count 218 K/uL (130-400); RDW Coefficient of Variation 13.6 % (11.5-14.5); RDW Standard Deviation 47.1 fL (36.4-46.3); Red Blood Count 4.13 M/uL (4.7-6.1); White Blood Count 8.61 K/uL (4.8-10.8)
--- NOTE | 2020-01-10 07:25 | Hospitalist Progress Note ---
Date of Service January 10, 2020 Assessment & Plan Admission and Anticipated Discharge Date Admission Date: January 07, 2020 Subjective Patient left AMA Notified by nursing staff this a.m., that patient wants to leave AMA. Patient fully dressed, sitting in the chair, complaining about being treated poorly by the nursing staff. Discussed with the patient transfer to inpatient rehab for alcohol rehab as he wanted. Case management tried to talk to the patient yesterday multiple times, however patient was either asleep or did not want to talk to them at that time. Patient says that he is willing to talk to them now and I told him that I would contact them (case management) immediately. Julián RN, psychiatry liaison also notified and arrived in to the room to talk to the patient. We all (me, Julián, and the patient) agreed, that Julián will talk to the patient while I will go notify case management. I discussed the current situation with case management, CM planned to see the patient. Unfortunately soon after I left the room, I was notified by the nursing staff, that patient left the hospital. Patient left AMA Results & Data ([facility]) Vital Signs (Past 12 Hours) Vital Signs Temp Pulse Pulse Resp BP BP Pulse Ox 01/10/20 04:02 72 01/10/20 04:00 36.5 C 69 20 131/85 95 01/09/20 23:00 36.5 C 97 H 20 163/94 H 96 01/09/20 19:29 36.6 C 87 20 144/94 H 91 Medications Administered Current Inpatient Medications Acetaminophen (Tylenol) 650 mg PO Q4H PRN PRN Reason: Pain or Fever Stop: 02/06/20 14:16 Last Admin: 01/08/20 07:42 Dose: 650 mg Documented by: Albuterol (Ventolin Hfa) 2 puffs INH Q4H PRN PRN Reason: wheezing Stop: 02/08/20 12:14 Fluticasone Propionate (Flonase) 1 sprays NA DAILY PRN PRN Reason: Congestion Stop: 02/08/20 12:14 Folic Acid (Folvite) 1 mg PO QAM [facility] Stop: 02/06/20 14:16 Last Admin: 01/09/20 08:33 Dose: 1 mg Documented by: Gabapentin (Neurontin) 800 mg PO QID [facility] Stop: 02/08/20 21:04 Last Admin: 01/09/20 22:05 Dose: 800 mg Documented by: Lorazepam (Ativan) 1 mg in 2 mls @ 2 mls/min IV UD PRN; Protocol PRN Reason: EtOH Withdrawl AWSS Score 6,7 Stop: 02/08/20 21:04 Lorazepam (Ativan) 2 mg in 4 mls @ 4 mls/min IV UD PRN; Protocol PRN Reason: EtOH Withdrawl AWSS Score 8,9 Stop: 02/08/20 21:04 Lorazepam (Ativan) 3 mg in 6 mls @ 4 mls/min IV ONCE PRN; Protocol PRN Reason: EtOH Withdrawl AWSS Score >=10 Stop: 02/08/20 21:04 Ipratropium Mingus (Atrovent Hfa) 2 puffs INH Q6H PRN PRN Reason: Wheezing Stop: 02/07/20 11:45 Ipratropium Mingus (Atrovent 0.02% 0.5mg/2.5ml) 0.5 mg INH Q6R [facility] Stop: 02/08/20 06:59 Last Admin: 01/10/20 01:12 Dose: Not Given Documented by: Levalbuterol HCl (Xopenex Hfa) 2 puffs INH Q6H PRN PRN Reason: Wheezing Stop: 02/07/20 11:45 Levalbuterol HCl (Xopenex 1.25mg/0.5ml Neb) 1.25 mg INH Q6R [facility] Stop: 02/08/20 06:59 Last Admin: 01/10/20 01:12 Dose: Not Given Documented by: Lorazepam (Ativan) 1 mg PO TID [facility] Stop: 02/08/20 13:59 Last Admin: 01/09/20 21:39 Dose: 1 mg Documented by: Lorazepam (Ativan) 1 mg PO HS PRN PRN Reason: Insomnia Stop: 02/08/20 21:03 Miscellaneous (Remove Nicoderm Patch) 1 ea N/A DAILY@0859 [facility] Stop: 02/07/20 08:58 Last Admin: 01/09/20 08:32 Dose: 1 ea Documented by: Multivitamins (Multivitamin Tab) 1 tab PO QAM [facility] Stop: 02/07/20 08:59 Last Admin: 01/09/20 08:33 Dose: 1 tab Documented by: Nicotine (Nicoderm Cq) 14 mg TD QAM [facility] Stop: 02/06/20 14:59 Last Admin: 01/09/20 08:33 Dose: 14 mg Documented by: Ondansetron HCl (Zofran) 4 mg IV Q6H PRN PRN Reason: Nausea Stop: 02/06/20 14:16 Polyethylene Glycol (Miralax Powder Packet) 17 gm PO DAILY PRN PRN Reason: Constipation Stop: 02/06/20 14:16 Potassium Phosphate (Phospha 250 Neutral [phone] Mg) 1 tab PO QID [facility] Stop: 02/08/20 20:59 Last Admin: 01/09/20 21:39 Dose: 1 tab Documented by: Thiamine HCl (Vitamin B-1) 100 mg PO QAM [facility] Stop: 02/07/20 08:59 Last Admin: 01/09/20 08:12 Dose: 100 mg Documented by:
[2020-01-10 07:55] LABS: Albumin Level 2.8 gm/dl (3.4-5.0); BUN Creatinine Ratio 25.6 (10-20); Bilirubin,Total 0.4 mg/dl (0.2-1); Calcium 8.8 mg/dl (8.5-10.1); Creatinine Clr Calc Pharmacy 120.4 ml/min; Est GFR (African American) 118.7; Est GFR (Non-African American) 102.4
[2020-01-10 08:13] LABS: Albumin Globulin Ratio 0.8 (0.9-2); Globulin 3.6 gm/dl (2.5-4.0); Total Protein 6.4 gm/dl (6.4-8.2)
[2020-01-10 08:15] LABS: Phosphorus 3.5 mg/dl (2.5-4.9)
[2020-01-10] MEDS: FOLIC ACID 1 MG TAB PO SCH (08:35)
[2020-01-10] MEDS: MULTIVITAMIN TAB PO SCH (08:35)
[2020-01-10] MEDS: GABAPENTIN 800 MG TAB PO SCH (08:35)
[2020-01-10] MEDS: POT PHOSPHATE MONOBASIC W/ SOD TAB PO SCH (08:35)
[2020-01-10] MEDS: LORazepam 1 MG TAB PO SCH (08:35)
[2020-01-10] MEDS: THIAMINE HCL 100 MG TAB PO SCH (08:35)
[2020-01-10] MEDS: NICOTINE 14 MG/24 HR PATCH TD SCH (08:37)
[2020-01-10 10:25] LABS: 7-Aminoclonaz, Confirm NEGATIVE ng/mL (<25); Amphetamine Urine, Confirm 963 ng/mL (<250); Hydro-Alp Ur, GC/MS NEGATIVE ng/mL (<25); Hydroxyethylflurazepam, Conf NEGATIVE ng/mL (<50); Hydroxytriazolam NEGATIVE ng/mL (<50); Lorazepam, Ur GC/MS NEGATIVE ng/mL (<50); Methamphetamine, Ur Confirm 5180 ng/mL (<250); Nordiazepam, Confirm NEGATIVE ng/mL (<50); Oxazepam Ur, GC/MS 286 ng/mL (<50); Temazepam, Confirm NEGATIVE ng/mL (<50)
[2020-01-11] MEDS ORDERED: GABAPENTIN 600 MG TAB PO SCH (01:00)
--- NOTE | 2020-01-18 23:34 | Discharge Summary ---
Date of Service January 10, 2020 Admission HPI Per Admitting Provider Pt is 59 y/o M with PMH paroxysmal atrial fibrillation, HTN, drug abuse, alcohol abuse, tobacco abuse presented to ER for altered mental status. Limited history obtained from pt secondary to altered mental status. ER staff report that patient was transported to ER that patient was found lying in the middle [place] the road on [facility]. There was question if patient was lying in the middle of the road secondary to suicidal ideations. Upon ER arrival he had reported to ER staff that he had fallen and that is why he was lying on the ground. Pt admits to IV methadone use. Also reports heroin and cocaine use. Patient states last used 2 days ago, However pt does not specify recent drugs used. Patient reports alcohol use however does not specify type or quantity. Smokes 8 cigarettes a day. Patient reports that he was in rehab in the past however it is unclear if this was recently. In ER he was c/o bilateral ankle pain. Difficult to obtain history from pt currently as his frequently falls asleep and when awake cries intermittently. Pt currently denies ZAVALA, CP, SOB, abdominal pain. He is currently denying any other pain. Unable to obtain FH from pt at this time secondary to altered mental state. Admission Exam Per Admitting Provider General: no acute distress, WDWN Head: normocephalic, atraumatic Eyes: PERRL, EOM's intact, conjunctiva non-injected, anicteric ENT: normal inspection external ears, nose, mucous membranes mildly dry Neck: supple, trachea midline Lungs: clear, no respiratory distress, no wheezing/rhonchi/rales CV: RRR, no murmur, no pitting pretibial edema Abd: normal BS, soft, non-tender Ext: no cyanosis, no calf tenderness; bilateral ankles and feet with edema with no apparent tenderness to palpation at this time, plantar feet with callus, ROM bilateral arms and legs and feet intact Neuro: Alert, oriented to person, unsure location or date, no focal deficits noted, +intermittent crying Skin: warm, dry; bilateral arms with track haynes with areas of firmness over veins without erythema or fluctuance Principal Diagnosis Alcohol/meth intoxication Alcohol withdrawal Elevated LFTs, hep C positive Discharge Exam General: middle aged male, sitting up in bed, in no acute distress, WDWN Head: normocephalic, atraumatic Eyes: PERRL, EOM's intact, conjunctiva non-injected, anicteric ENT: normal inspection external ears, nose, mucous membranes mildly dry Neck: supple, trachea midline Lungs: no respiratory distress, + mild wheezing, no rhonchi or rales CV: RRR, no murmur, no pitting pretibial edema Abd: normal BS, soft, non-tender, nondistended Ext: no cyanosis, no calf tenderness; bilateral ankles and feet with edema with some tenderness to palpation, ROM bilateral arms and legs and feet intact Neuro: Alert and oriented, speech fluent, no facial asymmetry, moves extremities spontaneously, no focal deficits noted Psych: visual hallucinations Skin: warm, dry; bilateral arms with track haynes with areas of firmness over veins without erythema or fluctuance Discharge Data Allergies Allergy/AdvReac Type Severity Reaction Status Date / Time clindamycin Allergy Unknown Unverified 01/10/20 12:49 Penicillins Allergy Swelling Verified 01/10/20 12:49 of Lip/Tongue/Throat Consultations 01/07/20 12:10 ED Decision to Admit Stat 01/07/20 14:17 Consult Case Management - Discharge Planning Routine 01/08/20 09:38 Consult Psychiatry Routine Ordered Studies 01/07/20 12:33 CT head/brain wo con Stat FINDINGS: No intra or extra-axial mass lesions are visualized. There is no CT evidence of acute cortical infarction. There is no evidence of midline shift. There is no acute hemorrhage. No calvarial fractures are visualized. There are mild white matter hypodensities likely on a small vessel basis. There is a right basal ganglia lacunar infarct. There is no evidence of pathologic ventricular dilatation. There is no evidence of acute sinusitis IMPRESSION: No acute intracranial findings Hospital Course (1) Alcohol intoxication: (2) Drug abuse: Pt is 59 y/o M with PMH paroxysmal atrial fibrillation, HTN, drug abuse, alcohol abuse, tobacco abuse presented to ER for altered mental status, was found by police lying in middle [place] the road on [facility]. Limited history obtained from pt secondary to his current altered mental status. 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 , hx of etoh and drug abuse - psych consulted for further eval Pt left AMA this morning (01/10/2020), after talking to me, psych liaison, and residential case manager. (3) Leukocytosis: In ER given 1L NSS, cefepime Afebrile. No cough reported WBC: 18, Lactate: 1.9, Procalcitonin: 0.2, CXR: no acute changes. Negative influenza. No noted abscess to arms -Blood cultures pending -UA - negative -Cefepime for empiric -MRSA swab -IVF -monitor CBC (4) Elevated LFTs: T: bili: 0.3, AST: 123, ALT: 78, Alk Phos: 78. No abdominal pain Alcohol abuse, h/o IV drug abuse Hep C positive screen - will need outpt follow up rest of Hepatitis panel pending LFTs trending down cont. to monitor (5) Paroxysmal atrial fibrillation: Current sinus rhythm Pt reports self stopped medications previously -Monitor on tele (6) HTN (hypertension): BP's on low side in ER and improved with fluids Not currently on medications -Monitor BP (7) Tobacco abuse: -Smoking cessation advised -Nicotine patch DVT Prophylaxis -SCDs Does not follow with PCP for routine care Total Time Total Time Spent Total Time Spent (In Minutes): 0 Discharge Plan Discharge Items Patient Disposition: Against Medical Advice Reason For Visit: INTOXICATION,LEUKOCYTOSIS Discharge Diagnosis: Alcohol/meth intoxication Alcohol withdrawal Elevated LFTs, hep C positive Condition on Discharge: Fair Activity: As commented below Activity Comment: Unable to provide any instructions, as patient left AMA Non-emergency contact: Primary Care Provider, Psychiatrist and Superior [address] Clerk Call non-emergency contact if: you have any medication questions Follow-up/Referrals: PCP,NO [Primary Care Provider] - Diet: Regular Addtl Attending Provider Instructions: No instructions provided, as patient left AMA without notification Pending Studies at Discharge: No Stand-Alone Forms: My [employer], Smoking Cessation Medications and DC Order Prescriptions: Continued albuterol sulfate 2.5 mg /3 mL (0.083 %) solution for nebulization 2.5 mg inhalation UD PRN (Reason: Wheezing) RF: 0 gabapentin 800 mg tablet 800 mg PO QID RF: 0 buspirone 7.5 mg tablet 7.5 mg PO TID RF: 0 albuterol sulfate 90 mcg/actuation HFA aerosol inhaler 2 puff INHALATION Q4H RF: 0 fluticasone propionate 50 mcg/actuation spray,suspension 1 spray INTRANASAL DAILY RF: 0 atenolol 50 mg tablet 50 mg PO HS RF: 0 cyclobenzaprine 5 mg tablet 5 mg PO TID RF: 0 Discharge Orders: Left Against Medical Advice (Routine); Ordered 01/10/20 Ordered By: Catarino Dalal Admission Data Admit Date/Time: 01/07/20 12:44 Attending Provider: Catarino Dalal Admit Provider: Eda Boyle Primary Care Provider: PCP,NO Other Providers: Kira Trujillo Other Interventions: Discharge Summary Assessment (RN) Last Done: 01/10/20 10:05 Infection Control - Act 87 Hepatitis C Last Done: 01/09/20 13:49 DC Date/Time DO NOT enter until pt leaves facility: 01/10/20 10:00
== END 2020-01-10 10:00 | disposition left against medical advice (07) | DRG 894 ==
LOC: ED 08:55 → SUATTDRO 12:44 → 2S 12:44 → 2N 01-09 02:25